=== PATIENT | male | born 2000 | race Two or more races ===

== ENCOUNTER 2019-01-30 09:12 | Emergency (ER) | payer OTHER ==
[~2019-01-30] VITALS: Ht 147.3 cm; Wt 62.5 kg
[2019-01-30 09:14] VITALS: BP 144/91
[2019-01-30] MEDS ORDERED: LIDOCAINE-MPF 1%, 5ML ONE (09:27)
[2019-01-30] MEDS ORDERED: LIDOCAINE 2%, 20ML SQ ONE (09:30)
[2019-01-30] MEDS ORDERED: BACITRACIN ZINC OINT 500U/GM, 0.9 GM ONE (09:59)
== END 2019-01-30 10:19 | disposition home or self-care (01) ==
LOC: ED 10:13
DX: L60.0 Ingrowing nail (principal); L03.031 Cellulitis of right toe; L03.032 Cellulitis of left toe
CPT/HCPCS: 11730; 99283

== ENCOUNTER 2019-08-10 18:54 | Emergency (ER) | payer SELFPAY ==
[~2019-08-10] VITALS: Ht 144.8 cm; Wt 56.0 kg
[2019-08-10 19:10] VITALS: BP 138/62
--- NOTE | 2019-08-10 20:40 | NUR ---
PT TO ROOM FROM LOBBY.
[2019-08-10] MEDS ORDERED: DEXAMETHASONE 4 MG TABLET ONE (21:29)
[2019-08-10] MEDS ORDERED: AMOXICILLIN 500 MG CAPSULE PO ONE (21:30)
[2019-08-10] MEDS ORDERED: AMOXICILLIN 500 MG CAPSULE ONE (21:30)
[2019-08-10] MEDS ORDERED: DEXAMETHASONE 4 MG TABLET PO ONE (21:30)
== END 2019-08-10 21:40 | disposition home or self-care (01) ==
LOC: ED 21:00
DX: H66.90 Otitis media, unspecified, unspecified ear (principal); F17.200 Nicotine dependence, unspecified, uncomplicated
CPT/HCPCS: 36415; 86308; 99283

== ENCOUNTER 2019-08-15 19:24 | Emergency (ER) | payer SELFPAY ==
[~2019-08-15] VITALS: Ht 144.8 cm; Wt 57.5 kg
[2019-08-15 19:31] VITALS: BP 143/66
== END 2019-08-15 20:41 | disposition home or self-care (01) ==
LOC: ED 20:15
DX: H66.003 Acute suppurative otitis media without spontaneous rupture of ear drum, bilateral (principal); H91.8X3 Other specified hearing loss, bilateral; F17.200 Nicotine dependence, unspecified, uncomplicated
CPT/HCPCS: 99281

== ENCOUNTER 2021-01-31 14:16 | Emergency (ER) | payer SELFPAY ==
[~2021-01-31] VITALS: Ht 144.8 cm; Wt 68.3 kg
[2021-01-31 14:19] VITALS: BP 146/74
--- NOTE | 2021-01-31 14:47 | NUR ---
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
[2021-01-31 14:51] LABS: MICROSCOPIC NOT IND
[2021-01-31 15:56] LABS: MEAN CORPUSCULAR HEMOGLOBIN 29.9 pg (27.5-34.5); MEAN CORPUSCULAR HGB CONC 33.9 g/dL (33.2-36.2); MEAN PLATELET VOLUME 7.9 fL (7.4-10.4); PLATELET COUNT 330 x10^3/uL (130-400); RED BLOOD COUNT 4.89 x10^6/uL (4.38-5.82); RED CELL DISTRIBUTION WIDTH 12.9 % (9.4-14.8)
[2021-01-31 16:04] LABS: MD YES
[2021-01-31 16:08] LABS: ALANINE AMINOTRANSFERASE 118 U/L (12-78); ALBUMIN 3.9 g/dL (3.4-5.0); ANION GAP 7 mmol/L (5-15); CHLORIDE 109 mmol/L (98-107); CREATININE 0.75 mg/dL (0.7-1.3)
[2021-01-31 16:10] LABS: ALKALINE PHOSPHATASE 130 U/L (45-117); BILIRUBIN,TOTAL 0.3 mg/dL (0.2-1.0); TOTAL PROTEIN 8.2 g/dL (6.4-8.2)
[2021-01-31] MEDS ORDERED: MAALOX/HYOSCYAMINE/LIDOCAINE 45 ML BTL ONE (17:42)
[2021-01-31] MEDS ORDERED: MAALOX/HYOSCYAMINE/LIDOCAINE 45 ML BTL PO ONE (18:00)
[2021-01-31 18:04] LABS: BAND#(MANUAL) 0.13 x10^3/uL; BANDS%(MANUAL) 1 % (0-7); BASOS#(MANUAL) 0.13 x10^3/uL (0-0.1); BASOS% (MANUAL) 1 % (0-1); EOS#(MANUAL) 0.13 x10^3/uL (0.0-0.4); EOS% (MANUAL) 1 % (1-7); LYMPH#(MANUAL) 5.98 x10^3/uL (1-3.4); LYMPHS% (MANUAL) 46 % (22-44); MONOS#(MANUAL) 0.78 x10^3/uL (0.3-2.7); MONOS% (MANUAL) 6 % (2-9); REACTIVE LYMPHS # (MANUAL) 0.26 x10^3/uL (0-0); REACTIVE LYMPHS % (MANUAL) 2 % (0-0); SEG#(MANUAL) 5.59 x10^3/uL (1.8-6.8); SEGS% (MANUAL) 43 % (42-75)
[2021-01-31 18:09] LABS: <PLATELET ESTIMATE> ADEQUATE; <PLT MORPHOLOGY> NORMAL PLT MORPH; <RBC MORPHOLOGY> NORMAL
== END 2021-01-31 18:55 | disposition home or self-care (01) ==
LOC: ED 14:46
DX: K29.00 Acute gastritis without bleeding (principal); J02.9 Acute pharyngitis, unspecified; F17.200 Nicotine dependence, unspecified, uncomplicated
CPT/HCPCS: 36415; 74022; 76700; 80053; 81003; 83690; 85025; 86308; 99285

== ENCOUNTER 2021-03-26 12:23 | Emergency (ER) | payer SELFPAY ==
[~2021-03-26] VITALS: Ht 144.8 cm; Wt 67.8 kg
--- NOTE | 2021-03-26 12:50 | NUR ---
PT BIB FRIEND VIA POV D/T EPIGASTRIC PAIN AND VOMITTING. PER PT THIS STARTED AT APPROX 0800 TODAY, PT STATES HE HAS HAD THIS PAIN BEFORE AND WAS SEEN IN THIS ED FOR IT, BUT DID NOT FOLLOW UP WITH GI. PT RESTING IN [facility], MONITORING IN PLACE, NADN AT THIS TIME, PER PT NO NEEDS, WCTM.
[2021-03-26] MEDS ORDERED: FAMOTIDINE 20 MG TABLET ONE (12:55)
[2021-03-26] MEDS ORDERED: ONDANSETRON ODT 4 MG ONE (12:55)
[2021-03-26] MEDS ORDERED: MAALOX/HYOSCYAMINE/LIDOCAINE 45 ML BTL ONE (12:55)
[2021-03-26] MEDS ORDERED: FAMOTIDINE 20 MG TABLET PO ONE (13:00)
[2021-03-26] MEDS ORDERED: MAALOX/HYOSCYAMINE/LIDOCAINE 45 ML BTL PO ONE (13:00)
[2021-03-26] MEDS ORDERED: ONDANSETRON ODT 4 MG PO ONE (13:00)
[2021-03-26 13:07] LABS: BASOPHILS % (AUTO) 0 % (0-1); EOSINOPHILS % (AUTO) 1 % (1-7); LYMPHOCYTES % (AUTO) 47 % (22-44); MEAN CORPUSCULAR HEMOGLOBIN 29.1 pg (27.5-34.5); MEAN PLATELET VOLUME 7.9 fL (7.4-10.4); MONOCYTES % (AUTO) 7 % (2-9); NEUTROPHILS % (AUTO) 45 % (42-75); PLATELET COUNT 337 x10^3/uL (130-400); RED BLOOD COUNT 4.92 x10^6/uL (4.38-5.82); RED CELL DISTRIBUTION WIDTH 13.4 % (9.4-14.8)
[2021-03-26 13:18] LABS: ALANINE AMINOTRANSFERASE 124 U/L (12-78); ALBUMIN 3.9 g/dL (3.4-5.0); ANION GAP 6 mmol/L (5-15); CALCIUM 9.5 mg/dL (8.5-10.1); CHLORIDE 109 mmol/L (98-107); CREATININE 0.68 mg/dL (0.7-1.3)
[2021-03-26 13:21] LABS: ALKALINE PHOSPHATASE 106 U/L (45-117); BILIRUBIN,TOTAL 0.6 mg/dL (0.2-1.0); TOTAL PROTEIN 8.1 g/dL (6.4-8.2)
[2021-03-26 13:26] LABS: MICROSCOPIC NOT IND
[2021-03-26 15:21] VITALS: BP 111/65
== END 2021-03-26 15:22 | disposition home or self-care (01) ==
LOC: ED 13:23
DX: K29.00 Acute gastritis without bleeding (principal); R10.13 Epigastric pain; R11.0 Nausea
CPT/HCPCS: 36415; 76700; 80053; 81003; 83690; 85025; 99284; Q0162